=== PATIENT | female | born 1995 | race Caucasian/White ===

== ENCOUNTER 2018-03-30 21:45 | Observation (INO) ==
[2018-03-30 22:59] LABS: Bilirubin,Urine Negative (Negative); Blood,Urine Negative (Negative); Clarity,Urine Cloudy (Clear); Color,Urine Yellow (Yellow); Glucose,Urine (UA) Normal (Normal); Ketones,Urine Negative (Negative); Leukocyte Esterase,Urine Small (Negative); Nitrite,Urine Negative (Negative); PH,Urine 6.5 pH Units (5.0-8.0); Protein,Urine Negative (Neg-Trace); Specific Gravity,Urine 1.012 (1.010-1.025); Urobilinogen,Urine Normal (Normal)
[2018-03-30 23:03] LABS: Bacteria,Urine Moderate per hpf (None-Few); Hyaline Casts,Urine None Seen per lpf (None-Few); RBC,Urine 0-3 per hpf (0-3); Squamous Epithelial Cell,Urine Many per lpf (None-Few)
[2018-03-30 23:09] LABS: Amphetamine Screen,Urine Negative ng/mL (Cutoff=1000); Barbiturate Screen,Urine Negative ng/mL (Cutoff=200); Benzodiazepines Screen,Urine Negative ng/mL (Cutoff=200); Cannabinoid Screen,Urine Negative ng/mL (Cutoff = 50); Cocaine Screen,Urine Negative ng/mL (Cutoff= 300); Opiate Screen,Urine Negative ng/mL (Cutoff=300); Phencyclidine Screen,Urine Negative ng/mL (Cutoff=25)
--- NOTE | 2018-04-03 09:11 | OB/GYN Progress Note ---
Date of Encounter: 03/31/18 Time of Encounter: 00:20 - Assessment and Plan (1) 36 weeks gestation of Status: Acute Assessed by RN Urine contaminated No cervical change after 2 hours Discharge home with labor precautions Follow up PRN and in office as scheduled (2) NST (non-stress test) reactive on surveillance Status: Acute Reactive NST Subjective - Subjective Interval history: [facility] Antepartum ROS: movement normal, contractions, no new complaints, no loss of fluid, no vaginal bleeding Objective - Exam FHR: auscultation normal, category 1 FHR comments: Baseline 125 - Labs Labs: Abnormal lab results Urine Clarity Cloudy (Clear) A 03/30/18 22:52 Ur Leukocyte Esterase Small (Negative) H 03/30/18 22:52 Urine Microscopic WBC 5-15 per hpf (0-3) H 03/30/18 22:52 Ur Squamous Epith Cells Many per lpf (None-Few) H 03/30/18 22:52 Urine Bacteria Moderate per hpf (None-Few) H 03/30/18 22:52 Ur Culture Indicated? NO. (NO) A 03/30/18 22:52
== END 2018-03-31 01:00 | disposition home or self-care (01) ==
LOC: 1NENULAB
PROVIDERS: ADMIT Advanced Practice Midwife; ATTEND Advanced Practice Midwife

== ENCOUNTER 2018-04-02 16:26 | Observation (INO) ==
[2018-04-02 18:14] LABS: Amphetamine Screen,Urine Negative ng/mL (Cutoff=1000); Barbiturate Screen,Urine Negative ng/mL (Cutoff=200); Benzodiazepines Screen,Urine Negative ng/mL (Cutoff=200); Cannabinoid Screen,Urine Negative ng/mL (Cutoff = 50); Cocaine Screen,Urine Negative ng/mL (Cutoff= 300); Opiate Screen,Urine Negative ng/mL (Cutoff=300); Phencyclidine Screen,Urine Negative ng/mL (Cutoff=25)
--- NOTE | 2018-04-02 19:52 | OB/GYN Progress Note ---
Date of Encounter: 04/02/18 Time of Encounter: 19:49 - Assessment and Plan (1) 38 weeks gestation of Current Visit: Yes Status: Acute (2) Vaginal discomfort Current Visit: Yes Status: Acute No cervical change on serial cervical exams (3) NST (non-stress test) reactive on surveillance Current Visit: No Status: Acute Baseline 130 (4) Decreased movement Current Visit: Yes Status: Acute Patient feeling movement triage, reactive tracing, discharged home with labor and when to return to triage precautions. Patient verbalizes understanding Qualifiers: Fetus number: single or unspecified fetus Trimester: third trimester Qualified Code(s): O36.8130 - Decreased movements, third trimester, not applicable or unspecified Subjective - Subjective Interval history: 38+0 weeks gestation presents to triage with complaints of decreased movement, and shooting pains in her vagina. Patient states the pains of been occurring over the last couple days increasing in vaginal pain today. Denies any vaginal bleeding or leaking of fluid Antepartum ROS: no loss of fluid, no vaginal bleeding, no movement normal , no contractions Objective - Vital Signs Vital Signs: Intake and Output 04/02/18 04/02/18 04/02/18 07:59 15:59 23:59 Other: Weight 75.4 kg Patient Weight 04/02/18 23:59 Weight 75.4 kg - Exam FHR: auscultation normal FHR comments: Baseline 130 Abdomen: Present: normal appearance, soft, gravid Cervical dilation: /-2
== END 2018-04-02 19:54 | disposition home or self-care (01) ==
LOC: 1NENULAB
PROVIDERS: ADMIT Obstetrics & Gynecology; ATTEND Obstetrics & Gynecology

== ENCOUNTER → 2021-02-07 22:25 | Observation (INO) ==
[2021-02-07 19:48] LABS: Amorphous Sediment,Urine Few per hpf (None-Few); Bacteria,Urine Few per hpf (None-Few); Bilirubin,Urine Negative (Negative); Blood,Urine Negative (Negative); Clarity,Urine Turbid (Clear); Color,Urine Yellow (Yellow); Glucose,Urine (UA) Normal (Normal); Ketones,Urine 60 mg/dL (Negative); Leukocyte Esterase,Urine Large (Negative); Mucus,Urine Few per lpf (None-Few); Nitrite,Urine Negative (Negative); PH,Urine 6.5 pH Units (5.0-8.0); Protein,Urine Trace mg/dL (Neg-Trace); Squamous Epithelial Cell,Urine Moderate per hpf (None-Few); Urobilinogen,Urine Normal (Normal); WBC,Urine 30-50 per hpf (0-3)
[2021-02-07 20:56] LABS: Basophils % 0.3 %; Eosinophils # 0.1 K/mcL (0.0-0.6); Eosinophils % 0.6 %; Hematocrit 33.9 % (35.3-44.9); Hemoglobin 11.9 g/dL (11.5-15.4); Immature Granulocytes % 0.6 % (0-4); Lymphocytes % 18.9 %; Mean Corpuscular HGB Conc 35.1 g/dL (31.6-35.5); Mean Corpuscular Hemoglobin 33.1 pg (28.0-33.3); Mean Corpuscular Volume 94.2 fL (83.0-100.0); Mean Platelet Volume 10.8 fL (9.4-12.4); Monocytes # 0.5 K/mcL (0.0-1.3); Neutrophils # 7.8 K/mcL (1.6-8.9); Platelet Count 173 K/mcL (140-400); Red Cell Distribution Width 13.9 % (11.5-14.5); Segmented Neutrophils % 74.6 %; White Blood Count 10.5 K/mcL (4.3-11.1)
[2021-02-07 22:16] LABS: Candida DNA DETECTED (Not Detect); Gardnerella DNA Not Detected (Not Detect); Trichomonas DNA DETECTED (Not Detect)
[~2021-02-07 22:25] MED LIST: Betamethasone Acet/SodPhos 30 MG/5 ML VIAL IM SCH; MetroNIDAZOLE 500 MG/100 ML 500 MG/100 ML BAG IVPB SCH; Ringers Solution, Lactated 500 ML IVC ONE; Terbutaline 1 MG/ML VIAL SQ ONE
== END | disposition home or self-care (01) ==
LOC: 1NENULAB
PROVIDERS: ADMIT Obstetrics & Gynecology; ATTEND Obstetrics & Gynecology

== ENCOUNTER 2021-03-09 22:56 | Inpatient (IN) ==
[2021-03-09 18:05] LABS: Basophils % 0.2 %; Eosinophils # 0.1 K/mcL (0.0-0.6); Eosinophils % 0.5 %; Hematocrit 36.6 % (35.3-44.9); Hemoglobin 12.5 g/dL (11.5-15.4); Immature Granulocytes % 0.5 % (0-4); Lymphocytes # 1.9 K/mcL (0.6-4.6); Lymphocytes % 12.7 %; Mean Corpuscular HGB Conc 34.2 g/dL (31.6-35.5); Mean Corpuscular Hemoglobin 32.5 pg (28.0-33.3); Mean Corpuscular Volume 95.1 fL (83.0-100.0); Mean Platelet Volume 10.4 fL (9.4-12.4); Monocytes # 0.7 K/mcL (0.0-1.3); Monocytes % 4.9 %; Neutrophils # 12.2 K/mcL (1.6-8.9); Platelet Count 184 K/mcL (140-400); Red Blood Count 3.85 M/mcL (3.82-4.97); Red Cell Distribution Width 14.1 % (11.5-14.5); Segmented Neutrophils % 81.2 %
[2021-03-09 18:11] LABS: Amphetamine Screen,Urine Negative ng/mL (Cutoff=1000); Barbiturate Screen,Urine Negative ng/mL (Cutoff=200); Benzodiazepines Screen,Urine Negative ng/mL (Cutoff=200); Cannabinoid Screen,Urine Negative ng/mL (Cutoff = 50); Cocaine Screen,Urine Negative ng/mL (Cutoff= 300); Opiate Screen,Urine Negative ng/mL (Cutoff=300); Phencyclidine Screen,Urine Negative ng/mL (Cutoff=25)
[~2021-03-09 22:56] MED LIST changes: +*HR* FentaNYL (PF) 100 MCG/2 ML VIAL EP ONE; +*HR* FentaNYL (PF) 100 MCG/2 ML VIAL ONE; -Betamethasone Acet/SodPhos 30 MG/5 ML VIAL IM SCH; +Bupivacaine-MPF 0.25% 10 ML VIAL ONE; +EPHEDrine 50 MG/ML VIAL IVP PRN; +Epidural Premix (fent/bupiv) 110 ML EP ONE; +Epidural Premix (fent/bupiv) 110 ML EP SCH; +Famotidine 20 MG/2 ML VIAL IVP PRN; +Lidocaine 1% 20 ML MDV ONE; +Lidocaine/EPI 1:200k 1% PF 10 ML VIAL ONE; +Metoclopramide 10 MG/2 ML VIAL IVP PRN; -MetroNIDAZOLE 500 MG/100 ML 500 MG/100 ML BAG IVPB SCH; +Naloxone 0.4 MG/ML INJ IVP PRN; +Penicillin G Potassium 2,500,000 UNIT/105 ML MLS IVPB SCH; +Penicillin G Potassium 5,000,000 UNIT in 0.9 % Sodium Chloride Mini Bag 100 ML IVPB ONE; +Ringers Solution, Lactated 1,000 ML ONE; -Ringers Solution, Lactated 500 ML IVC ONE; +Ropivacaine/PF 0.2% 20 ML VIAL EP ONE; -Terbutaline 1 MG/ML VIAL SQ ONE
[2021-03-09] MEDS ORDERED: Oxytocin 20 units/ LR 1000 mL 20 UNIT/1,000 ML BAG IVC SCH (23:02)
[2021-03-09] MEDS ORDERED: Measles/Mumps/Rubella Vacc 0.5 ML VIAL SQ PRN (23:02)
[2021-03-09] MEDS ORDERED: Acetaminophen 325 MG TABLET PO PRN (23:02)
[2021-03-09] MEDS ORDERED: Rho Immune Globulin 1,500 UNIT SYRINGE IM PRN (23:02)
[2021-03-09] MEDS: Ibuprofen 600 MG TABLET PO PRN (23:56)
[2021-03-10 04:55] LABS: Basophils % 0.1 %; Eosinophils # 0.1 K/mcL (0.0-0.6); Eosinophils % 0.4 %; Hematocrit 30.9 % (35.3-44.9); Immature Granulocytes % 0.7 % (0-4); Lymphocytes # 2.2 K/mcL (0.6-4.6); Mean Corpuscular Hemoglobin 32.8 pg (28.0-33.3); Mean Corpuscular Volume 93.9 fL (83.0-100.0); Mean Platelet Volume 10.6 fL (9.4-12.4); Monocytes # 1.1 K/mcL (0.0-1.3); Monocytes % 6.7 %; Neutrophils # 12.3 K/mcL (1.6-8.9); Platelet Count 161 K/mcL (140-400); Red Blood Count 3.29 M/mcL (3.82-4.97); Red Cell Distribution Width 14.2 % (11.5-14.5); Segmented Neutrophils % 78.1 %; White Blood Count 15.7 K/mcL (4.3-11.1)
[2021-03-10 04:56] LABS: Hemoglobin 10.8 g/dL (11.5-15.4)
[2021-03-10] MEDS ORDERED: Prenatal Vit/FA 1 EACH TABLET PO SCH (09:00)
[2021-03-10] MEDS: Ibuprofen 600 MG TABLET PO PRN (09:27)
[2021-03-10 16:18] VITALS: TEMP 97.8; O2SAT 97
[2021-03-10 16:19] VITALS: BP 111/70; PULSE 90
== END 2021-03-10 19:16 | disposition home or self-care (01) | DRG 560 ==
LOC: 1NENULAB → 1NENUOBS 22:56
PROVIDERS: ADMIT Student in an Organized Health Care Education/Training Program; ATTEND Student in an Organized Health Care Education/Training Program